=== PATIENT | female | born 1965 | race Caucasian/White ===

== ENCOUNTER 2023-08-04 09:41 | Emergency (ER) | payer MEDICAID ==
[~2023-08-04] VITALS: Ht 157.5 cm; Wt 57.0 kg
[~2023-08-04 09:41] MED LIST: IBUP-2029 MT
[2023-08-04 09:57] VITALS: O2SAT 99
[2023-08-04] MEDS ORDERED: IBUPROFEN 600MG TABLET PO ONE (10:45)
[2023-08-04 13:42] VITALS: BP 114/59; PULSE 59; RESP 20; TEMP 98.3
== END 2023-08-04 13:44 | disposition home or self-care (01) ==
LOC: ER 09:41
DX: S90.121A Contusion of right lesser toe(s) without damage to nail, initial encounter (principal); J45.909 Unspecified asthma, uncomplicated; Z86.59 Personal history of other mental and behavioral disorders; Z90.49 Acquired absence of other specified parts of digestive tract; W18.30XA Fall on same level, unspecified, initial encounter; Y93.89 Activity, other specified; Y92.89 Other specified places as the place of occurrence of the external cause; Y99.8 Other external cause status
CPT/HCPCS: 73610; 73630; 99284